=== PATIENT | female | born 1985 | race Caucasian/White ===

== ENCOUNTER 2025-04-12 00:41 | Emergency (ER) | payer MEDICAID, OTHER ==
[~2025-04-12] VITALS: Ht 170.2 cm; Wt 61.2 kg
[2025-04-12 01:57] VITALS: BP 143/86; TEMP 98; O2SAT 97
== END 2025-04-12 01:57 | disposition home or self-care (01) ==
LOC: ER 00:53
DX: F41.9 Anxiety disorder, unspecified (principal); F22 Delusional disorders; F31.9 Bipolar disorder, unspecified